=== PATIENT | male | born 1945 | race Caucasian/White ===

== ENCOUNTER 2019-02-23 11:37 | Observation (INO) ==
--- NOTE | 2019-02-23 11:44 | Emergency Department Note ---
Disposition Clinical Impression: Unstable angina pectoris Chest pain Qualifiers: Chest pain type: unspecified Qualified Code(s): R07.9 - Chest pain, unspecified Disposition: Admitted As Inpatient Condition: Fair Time of Disposition: 15:22 General Adult HPI - General Stated complaint: Chest Pain Time Seen by Provider: 02/23/19 11:39 - Related Data Home Medications Medication Instructions Recorded Confirmed Aspirin 81 mg PO 02/23/19 Fenofibrate Nanocrystallized 145 mg PO 02/23/19 [Fenofibrate] Finasteride [Propecia] 0.5 mg PO 02/23/19 Gabapentin [Neurontin] 600 mg PO Q3H 02/23/19 02/23/19 Lisinopril [Zestril] 20 mg PO BID 02/23/19 02/23/19 OxyCODONE/APAP 5/325 [Percocet 1 each PO Q4HR PRN 02/23/19 02/23/19 5/325 MG] Tamsulosin [Flomax] 0.4 mg PO DAILY 02/23/19 02/23/19 cloNIDine HCl [CloNIDine HCl] 0.1 mg PO TID 02/23/19 02/23/19 Allergies Allergy/AdvReac Type Severity Reaction Status Date / Time No Known Allergies Allergy Verified 02/23/19 11:58 Course Vital Signs Temperature 97.6 F 02/23/19 11:50 Pulse Rate 56 02/23/19 11:50 Respiratory Rate 16 02/23/19 11:50 Blood Pressure 147/77 02/23/19 11:50 O2 Sat by Pulse Oximetry 100 02/23/19 11:50 Temperature 97.6 F 02/23/19 14:57 Pulse Rate 55 02/23/19 14:57 Respiratory Rate 15 02/23/19 14:57 Blood Pressure 152/85 02/23/19 14:57 O2 Sat by Pulse Oximetry 98 02/23/19 14:57 Oxygen Delivery Oxygen Delivery Room Air Medical Decision Making - Lab Data Result diagrams: 02/23/19 12:31 02/23/19 13:55 Lab Results 02/23/19 02/23/19 02/23/19 Range/Units 12:31 12:31 12:31 WBC 9.0 (4.3-11.1) K/mcL RBC 5.36 (4.19-5.50) M/mcL Hgb 16.0 D (12.9-16.9) g/dL Hct 49.1 (37.5-50.1) % MCV 91.6 (83.0-100.0) fL MCH 29.9 (28.0-33.3) pg MCHC 32.6 (31.6-35.5) g/dL RDW 13.1 (11.5-14.5) % Plt Count 244 (140-400) K/mcL MPV 10.2 (9.4-12.4) fL Immature Gran % 0.7 (0-4) % Seg Neutrophils % 73.1 % Lymphocytes % 16.1 % Monocytes % 7.7 % Eosinophils % 1.3 % Basophils % 1.1 % Neutrophils # 6.6 (1.6-8.9) K/mcL Lymphocytes # 1.5 (0.6-4.6) K/mcL Monocytes # 0.7 (0.0-1.3) K/mcL Eosinophils # 0.1 (0.0-0.6) K/mcL Basophils # 0.1 (0.0-0.2) K/mcL Sodium Cancelled Potassium Cancelled Chloride Cancelled Carbon Dioxide Cancelled BUN Cancelled Creatinine Cancelled Est GFR ( Amer) Cancelled Est GFR (Non-Af Amer) Cancelled BUN/Creatinine Ratio Cancelled Glucose Cancelled Calculated Osmolality Cancelled Calcium Cancelled Total Bilirubin Cancelled AST Cancelled ALT Cancelled Alkaline Phosphatase Cancelled Troponin I < 0.03 (< 0.04) ng/mL B-Natriuretic Peptide 21 (Less than 100) pg/mL Serum Total Protein Cancelled Albumin Cancelled Globulin Cancelled Albumin/Globulin Ratio Cancelled Specimen Rejected 02/23/19 02/23/19 Range/Units 12:31 13:55 WBC (4.3-11.1) K/mcL RBC (4.19-5.50) M/mcL Hgb (12.9-16.9) g/dL Hct (37.5-50.1) % MCV (83.0-100.0) fL MCH (28.0-33.3) pg MCHC (31.6-35.5) g/dL RDW (11.5-14.5) % Plt Count (140-400) K/mcL MPV (9.4-12.4) fL Immature Gran % (0-4) % Seg Neutrophils % % Lymphocytes % % Monocytes % % Eosinophils % % Basophils % % Neutrophils # (1.6-8.9) K/mcL Lymphocytes # (0.6-4.6) K/mcL Monocytes # (0.0-1.3) K/mcL Eosinophils # (0.0-0.6) K/mcL Basophils # (0.0-0.2) K/mcL Sodium 134 L Potassium 5.2 H Chloride 101 Carbon Dioxide 27 BUN 34 H Creatinine 1.19 Est GFR ( Amer) > 60 Est GFR (Non-Af Amer) 60 BUN/Creatinine Ratio 29 H Glucose 107 H Calculated Osmolality 286 Calcium 10.3 Total Bilirubin 0.5 AST 21 ALT 15 Alkaline Phosphatase 40 Troponin I (< 0.04) ng/mL B-Natriuretic Peptide (Less than 100) pg/mL Serum Total Protein 7.1 Albumin 4.5 Globulin 2.6 Albumin/Globulin Ratio 1.7 Specimen Rejected Hemolyzed Attestation Statement - Attestation Attestation: I reviewed the residents documentation and agree with the residents assessment and plan of care. I have personally had face to face time with the patient. (Brief History, Brief Exam, and MDM) I personally supervised and was present for the olivas/critical portions of the following procedures completed by the resident: (add procedures performed here). [id number] time provided I attest to supervising the resident physician interpretation of ECG, chest x- ray Patient arrives complaining of chest discomfort. Pain radiates to his left arm. He states he had a cardiac catheterization several years ago without stent deployment. No other known history of cardiac issues. He appears in no acute distress on exam. He was given an aspirin by mouth prior to referral here from his physical therapy nurse's office 12:00: ECG sent to cardiology manager media relations for review (Dr. Hill) at 12:00
[2019-02-23] MEDS ORDERED: Nitroglycerin 0.4 MG TAB.SUBL SL PRN (11:45)
--- NOTE | 2019-02-23 11:48 | Emergency Department Note ---
Disposition Clinical Impression: Unstable angina pectoris Chest pain Qualifiers: Chest pain type: unspecified Qualified Code(s): R07.9 - Chest pain, unspecified Disposition: Admitted As Inpatient Condition: Fair Forms: ED Satisfaction Letter Time of Disposition: 13:36 Chest Pain HPI - General Chief Complaint: ED Chest Pain Stated Complaint: Chest Pain Time Seen by Provider: 02/23/19 11:39 Source: patient Mode of arrival: wheelchair Limitations: no limitations Vital Signs Reviewed: Yes Nursing Notes Reviewed: Yes - History of Present Illness HPI Narrative: Patient presented here for chest pain came from the nephrology office as he is currently getting worked up for polycythemia. Patient states the chest pain began yesterday was coming going and now today it is now constant department describing it as a pressure in his chest 6 out of 10 nonradiating. Today though started due to radiated down the left arm worse now become tingly. He has never had a heart stent placed but has had heart catheterization done partially 5 years ago at [facility]. He said it does not change with exertion he is mildly short of breath since yesterday since the chest pain began. Also has noticed slight weakness or last week his headache feels more tired than normal. There is no nausea no vomiting no change with exertion. Otherwise patient has no other complaints. - Related Data Allergies Allergy/AdvReac Type Severity Reaction Status Date / Time No Known Allergies Allergy Verified 02/23/19 11:58 All systems ED: reviewed and negative except as stated. Review of Systems: As Per HPI Physical Exam - General Limitations: no limitations General appearance: alert, in no apparent distress - Head Head exam: atraumatic, normocephalic, normal inspection - Eye Eye exam: Present: normal appearance, PERRL, EOMI - Neck Neck exam: Present: normal inspection, full ROM, trachea midline - Chest Chest inspection: Present: normal inspection. Absent: symmetric chest wall rise, tenderness - Respiratory Respiratory exam: Present: normal lung sounds bilaterally. Absent: respiratory distress, wheezes, accessory muscle use - Cardiovascular Cardiovascular exam: Present: regular rate, normal rhythm, normal heart sounds - Abdominal Exam Abdominal exam: Present: soft, Non-Tender, normal bowel sounds. Absent: tenderness, distention, guarding, rebound, rigidity - Extremities Exam Extremities exam: Present: normal inspection, full ROM. Absent: tenderness, pedal edema - Back Exam Back exam: Present: normal inspection, full ROM. Absent: tenderness, CVA tenderness (R), CVA tenderness (L) - Neurological Exam Neurological exam: Present: alert, oriented X3 - Skin Skin exam: Present: warm, dry, intact, normal color Course Course Narrative: We will get normal chest pain workup including CBC BMP troponin ENP as well as EKG and chest x-ray. We will give patient nitroglycerin over the chest pain. He received aspirin at the nephrology clinic prior to arrival. - Consultations Consultation #1: Spoke with on-call billing assistant Dr. Foster who came down to see the patient as well as look at the EKG and he agrees this is not a STEMI at this time. He recommended admission as well as a nuclear (non-exercise) stress test to be done and they will consult with the patient. No further treatment recommendations at this time from them Time: 12:52 Vital Signs Temperature 97.6 F 02/23/19 11:50 Pulse Rate 56 02/23/19 11:50 Respiratory Rate 16 02/23/19 11:50 Blood Pressure 147/77 02/23/19 11:50 O2 Sat by Pulse Oximetry 100 02/23/19 11:50 Temperature 97.6 F 02/23/19 11:50 Pulse Rate 56 02/23/19 11:50 Respiratory Rate 16 02/23/19 11:50 Blood Pressure 147/77 02/23/19 11:50 O2 Sat by Pulse Oximetry 100 02/23/19 11:50 Oxygen Delivery Oxygen Delivery Room Air Chest Pain - [facility] Narrative Medical decision making narrative: 73-year-old male presents to the emergency department complaining of chest pain. EKG was reviewed by cardiology they agreed with no STEMI being called. The did recommend nuclear stress test to be done and for patient to be admitted. Consultation was placed. Troponin came back negative. All other labs are within normal limits. I spoke with the hospitalist Dr. Crowe who agreed to ac cept the patient to their service. Patient admitted in stable condition. Aspirin was given at nephrology prior to coming here. We did give him nitroglycerin which did help with his chest pain. Chest X-Ray 02/23/19 11:42 IMPRESSION: No acute cardiopulmonary disease. D/ / 02/23/2019 12:26:48 Mita Wiggins MD / christine Interpreting Provider: Mita Wiggins MD - Medical Records Medical records reviewed: Yes I reviewed the patient's medical records. - Lab Data Lab results reviewed: Yes I reviewed the patient's lab results. Result diagrams: 02/23/19 12:31 02/23/19 12:31 Lab Results 02/23/19 02/23/19 02/23/19 Range/Units 12:31 12:31 12:31 WBC 9.0 (4.3-11.1) K/mcL RBC 5.36 (4.19-5.50) M/mcL Hgb 16.0 D (12.9-16.9) g/dL Hct 49.1 (37.5-50.1) % MCV 91.6 (83.0-100.0) fL MCH 29.9 (28.0-33.3) pg MCHC 32.6 (31.6-35.5) g/dL RDW 13.1 (11.5-14.5) % Plt Count 244 (140-400) K/mcL MPV 10.2 (9.4-12.4) fL Immature Gran % 0.7 (0-4) % Seg Neutrophils % 73.1 % Lymphocytes % 16.1 % Monocytes % 7.7 % Eosinophils % 1.3 % Basophils % 1.1 % Neutrophils # 6.6 (1.6-8.9) K/mcL Lymphocytes # 1.5 (0.6-4.6) K/mcL Monocytes # 0.7 (0.0-1.3) K/mcL Eosinophils # 0.1 (0.0-0.6) K/mcL Basophils # 0.1 (0.0-0.2) K/mcL Sodium Cancelled Potassium Cancelled Chloride Cancelled Carbon Dioxide Cancelled BUN Cancelled Creatinine Cancelled Est GFR ( Amer) Cancelled Est GFR (Non-Af Amer) Cancelled BUN/Creatinine Ratio Cancelled Glucose Cancelled Calculated Osmolality Cancelled Calcium Cancelled Total Bilirubin Cancelled AST Cancelled ALT Cancelled Alkaline Phosphatase Cancelled Troponin I < 0.03 (< 0.04) ng/mL B-Natriuretic Peptide 21 (Less than 100) pg/mL Serum Total Protein Cancelled Albumin Cancelled Globulin Cancelled Albumin/Globulin Ratio Cancelled Specimen Rejected 02/23/19 Range/Units 12:31 WBC (4.3-11.1) K/mcL RBC (4.19-5.50) M/mcL Hgb (12.9-16.9) g/dL Hct (37.5-50.1) % MCV (83.0-100.0) fL MCH (28.0-33.3) pg MCHC (31.6-35.5) g/dL RDW (11.5-14.5) % Plt Count (140-400) K/mcL MPV (9.4-12.4) fL Immature Gran % (0-4) % Seg Neutrophils % % Lymphocytes % % Monocytes % % Eosinophils % % Basophils % % Neutrophils # (1.6-8.9) K/mcL Lymphocytes # (0.6-4.6) K/mcL Monocytes # (0.0-1.3) K/mcL Eosinophils # (0.0-0.6) K/mcL Basophils # (0.0-0.2) K/mcL Sodium Potassium Chloride Carbon Dioxide BUN Creatinine Est GFR ( Amer) Est GFR (Non-Af Amer) BUN/Creatinine Ratio Glucose Calculated Osmolality Calcium Total Bilirubin AST ALT Alkaline Phosphatase Troponin I (< 0.04) ng/mL B-Natriuretic Peptide (Less than 100) pg/mL Serum Total Protein Albumin Globulin Albumin/Globulin Ratio Specimen Rejected Hemolyzed - Radiology Data Radiology results reviewed: Yes I reviewed the patient's radiology results. - EKG Data EKG attestation: Yes I reviewed and interpreted this EKG. EKG results narrative: EKG done at 1148 review myself and the attending shows sinus rhythm at a rate of 54, RI 157, QRS 96, QTC 341. There is ST elevation in lead V2 and V3 V2 only has 2 mm in V3 has a half a millimeter this does not meet STEMI criteria there is no other T-wave abnormalities. There is no other signs of ischemia. There is no hypertrophy, heart strain, heart block. No WPW/Brugada/HOCM. There is no old EKG to compare with Heart Score - Score History: Moderately Suspicious EKG: Non Specific repolarisation Disturbance Age: Greater than 65 Risk Factors: 1-2 risk factors Troponin: Less than normal limit HEART Score Total: 5
[2019-02-23 12:46] LABS: Basophils # 0.1 K/mcL (0.0-0.2); Basophils % 1.1 %; Eosinophils # 0.1 K/mcL (0.0-0.6); Eosinophils % 1.3 %; Hematocrit 49.1 % (37.5-50.1); Immature Granulocytes % 0.7 % (0-4); Lymphocytes # 1.5 K/mcL (0.6-4.6); Lymphocytes % 16.1 %; Mean Corpuscular HGB Conc 32.6 g/dL (31.6-35.5); Mean Corpuscular Hemoglobin 29.9 pg (28.0-33.3); Mean Corpuscular Volume 91.6 fL (83.0-100.0); Mean Platelet Volume 10.2 fL (9.4-12.4); Monocytes # 0.7 K/mcL (0.0-1.3); Monocytes % 7.7 %; Neutrophils # 6.6 K/mcL (1.6-8.9); Platelet Count 244 K/mcL (140-400); Red Blood Count 5.36 M/mcL (4.19-5.50); Red Cell Distribution Width 13.1 % (11.5-14.5); Segmented Neutrophils % 73.1 %
[2019-02-23 14:34] LABS: Alanine Aminotransferase 15 Units/L (7-52); Albumin 4.5 g/dL (3.5-5.7); Albumin/Globulin Ratio 1.7 (1.1-2.2); Alkaline Phosphatase 40 Units/L (34-104); Aspartate Amino Transferase 21 Units/L (13-39); BUN/Creatinine Ratio 29 (6-26); Bilirubin,Total 0.5 mg/dL (0.3-1.0); Blood Urea Nitrogen 34 mg/dL (8-23); Calcium 10.3 mg/dL (8.6-10.3); Carbon Dioxide 27 mEq/L (23-29); Chloride 101 mEq/L (98-107); Globulin 2.6 g/dL (2.4-3.5); Glucose 107 mg/dL (70-105); Osmolality,Calculated 286 (280-300); Potassium 5.2 mEq/L (3.5-5.1); Sodium 134 mEq/L (136-145); Total Protein 7.1 g/dL (6.4-8.9); eGFR For African Americans > 60 (> 60); eGFR For Non-African Americans 60 (> 60)
[2019-02-23] MEDS ORDERED: Naloxone 0.4 MG/ML INJ IVP PRN (16:24)
[2019-02-23] MEDS ORDERED: Acetaminophen 325 MG TABLET PO PRN (16:24)
[2019-02-23] MEDS ORDERED: Ondansetron ODT 4 MG TAB.RAPDIS SL PRN (16:24)
--- NOTE | 2019-02-23 16:51 | Internal Med History&Physical ---
Date of Encounter: 02/23/19 Time of Encounter: 16:51 Internal Medicine - H&P: HPI Chief complaint: cp Admitted From: Emergency Dept Plans for Post Hospital Care: Home History of present illness: Mr. Coles is a 73 year old male medical history of diabetes type 2 hyperlipidemia hypertension PVD left CEA chronic back pain-it began to experience off and on chest pain starting yesterday that occurred at rest with no aggravating or relieving factors. Today pain has been more constant is describing as a pressure at times sharp radiating to his left arm which she states feels like a "toothache". Patient has been feeling mild breath on exertion as well as increasingly weak. Denies any nausea vomiting or lightheadedness some slight diaphoresis. He was at his nephrology appointment when symptoms began to worsen he was advised to go to the ER for evaluation. Laboratory was obtained troponin was negative chest x-ray with nothing acute. EKG was obtained which did show some ST elevations in V3 4-5 and 2 evaluated by cardiology in the ER does not appear to be STEMI he will be admitted and undergo nuclear stress test in the a.m. evaluated by cardiology after testing. Currently patient does experience some intermittent sharp left-sided chest pain however he is declining nitroglycerin at this time he does not want to get a headache. Vital signs are stable discuss treatment plan with the patient verbalized understanding Past Med Surg Social Fam HX - Past Medical History Medical history: diabetes, hypertension, renal disease Psychiatric history: no psych history - Past Surgical History Surgical History: appendectomy, herniorrhaphy Additional surgical history: Back [id number] - Social History Smoking Status: Former smoker Smokeless Tobacco Status: No Alcohol use: none Drug use: none - Family History Mother Living Status: Cause of : cva Hx Family Cardiac Disorders: Yes Father History Unknown: Yes Internal Medicine - H&P: Meds Aspirin 81 mg PO 02/23/19 [History] Fenofibrate Nanocrystallized [Fenofibrate] 145 mg PO 02/23/19 [History] Finasteride [Propecia] 0.5 mg PO 02/23/19 [History] Gabapentin [Neurontin] 600 mg PO Q4H 02/23/19 [History] Lisinopril [Zestril] 20 mg PO BID 02/23/19 [History] OxyCODONE/APAP 5/325 [Percocet 5/325 MG] 1 each PO Q4HR PRN 02/23/19 [History] Tamsulosin [Flomax] 0.4 mg PO DAILY 02/23/19 [History] cloNIDine HCl [CloNIDine HCl] 0.1 mg PO TID 02/23/19 [History] Allergy/AdvReac Type Severity Reaction Status Date / Time No Known Allergies Allergy Verified 02/23/19 11:58 All Systems PM: A 10-system review of systems was performed and is negative for pertinent findings except as documented above in the HPI. - Constitutional Constitutional: no chills, no fever(s), no night sweats - EENT Eyes: no change in vision, no discharge, no pain, no photophobia Nose, mouth and throat: no dysphagia, no nasal discharge, no neck pain, no sore throat - Cardiovascular Cardiovascular ROS IM: no chest pain, no diaphoresis, no dyspnea, no lightheadedness, no palpitations, no syncope - Respiratory Respiratory: no cough, no dyspnea, no wheezing, no excessive phlegm production - Gastrointestinal Gastrointestinal: no abdominal pain, no diarrhea, no hematemesis, no hematochezia, no melena, no nausea, no vomiting - Musculoskeletal Musculoskeletal ROS IM: no numbness, no tingling - Integumentary Integumentary IM: no rash, no unusual bruising - Neurological Neurological ROS: no confusion, no convulsions, no focal weakness, no numbness, no tingling, no tremor(s) - Hematologic/Lymphatic Hematologic/Lymphatic: no easy bruising - Constitutional Vitals: Temp Pulse Resp BP Pulse Ox 97.6 F 55 15 152/85 98 02/23/19 14:57 02/23/19 14:57 02/23/19 14:57 02/23/19 14:57 02/23/19 14:57 Exam: Skin: Free of rash and discoloration. Eyes: Sclera is white. There is no discharge from eyes. ENMT: Oral/pharyngeal mucosa is normal in appearance. There is no discharge from nose or ears. Respiratory: Normal breath sounds with no crackles and wheezes bilaterally. CV: Heart is regular with no gallop or murmur. GI: Abdomen is flat and soft with no palpable mass or visceromegaly. : There is no tenderness in patient's flanks bilaterally. Neuro exam: He has good strength in upper and lower extremities. He has normal eye movements. Psychiatric: He has normal affect. His thought process is appropriate to the situation. Internal Med - H&P Results - Labs CBC & Chem 7: 02/23/19 12:31 02/23/19 13:55 Labs: Short CBC 02/23/19 Range/Units 12:31 WBC 9.0 (4.3-11.1) K/mcL Hgb 16.0 D (12.9-16.9) g/dL Hct 49.1 (37.5-50.1) % Plt Count 244 (140-400) K/mcL Neutrophils # 6.6 (1.6-8.9) K/mcL BMP 02/23/19 02/23/19 12:31 13:55 Sodium Cancelled 134 L Potassium Cancelled 5.2 H Chloride Cancelled 101 Carbon Dioxide Cancelled 27 BUN Cancelled 34 H Creatinine Cancelled 1.19 Glucose Cancelled 107 H Calcium Cancelled 10.3 Cardiac Enzymes 02/23/19 Range/Units 12:31 Troponin I < 0.03 (< 0.04) ng/mL Liver Function 02/23/19 02/23/19 Range/Units 12:31 13:55 Total Bilirubin Cancelled 0.5 AST Cancelled 21 ALT Cancelled 15 Alkaline Phosphatase Cancelled 40 Albumin Cancelled 4.5 - Impressions ITS Impressions Chest X-Ray 02/23/19 11:42 IMPRESSION: No acute cardiopulmonary disease. D/ / 02/23/2019 12:26:48 Mita Wiggins MD / christine Interpreting Provider: Mita Wiggins MD - Assessment and Plan (1) Chest pain Current Visit: Yes Status: Acute Assessment and plan: 1 patient has been experiencing chest pain off and on for 2 days pain has worsened and become continuous with associated symptoms of weakness and shortness of breath pain radiates to left arm which he describes as a toothache. Initial troponin was negative Initial trend troponins Initial EKG did have some ST elevation V 3,4,5 and 2 evaluated by cardiology- not a STEMI Continuous cardiac monitoring Recheck EKG in the a.m. Lipid profile statin, continue aspirin Check TSH Obtain cardiac echo Nothing by mouth midnight for nuclear stress test in the a.m. Cardiology consult and appreciate recommendations Nitroglycerin as needed for chest pain Qualifiers: Chest pain type: unspecified Qualified Code(s): R07.9 - Chest pain, unspecified (2) HTN (hypertension) Current Visit: Yes Status: Acute Assessment and plan: Continue with home medications Qualifiers: Hypertension type: essential hypertension Qualified Code(s): I10 - Essential (primary) hypertension (3) Diabetes mellitus Current Visit: Yes Status: Acute Assessment and plan: Accu-Cheks before meals at bedtime with sliding scale insulin Qualifiers: Diabetes mellitus type: type 2 Diabetes mellitus fpc insulin use: without terminal operations supervisor use Diabetes mellitus complication status: with kidney complications Diabetes mellitus complication detail: with chronic kidney disease Chronic kidney disease stage: stage 3 (moderate) Qualified Code(s): E11.22 - Type 2 diabetes mellitus with diabetic chronic kidney disease; N18.3 - Chronic kidney disease, stage 3 (moderate) (4) CKD (chronic kidney disease) stage 3, GFR 30-59 ml/min Current Visit: Yes Status: Acute Assessment and plan: CKG stage III-appears baseline ranges from 1-1.5 currently at 1.19 we will continue to monitor closely Avoid nephrotoxins intake output daily weights (5) DVT prophylaxis Current Visit: Yes Status: Acute Assessment and plan: Heparin subcutaneous - Time Spent With Patient Total time spent is greater than 50% in coordination of care (as documented) at patient's floor/unit and/or counseling patient:
[2019-02-23] MEDS ORDERED: D5% in Water 1,000 ML IVC PRN (17:51)
[2019-02-23] MEDS ORDERED: Dextrose Gel 15 GM/37.5 ML TUBE PO PRN ×2 (17:51)
[2019-02-23] MEDS ORDERED: *HR* Dextrose 50 % in Water (Syg) 50 ML SYRINGE IVP PRN (17:51)
[2019-02-23] MEDS: Gabapentin 300 MG CAPSULE PO SCH ×3 (18:07→23:11)
[2019-02-23] MEDS: *HR* Heparin 5,000 UNIT/ML VIAL SQ SCH (18:08)
[2019-02-23] MEDS ORDERED: Perflutren Lipid Microsphere 1.3 ML in 0.9 % Sodium Chloride 8.7 ML IVP ONE (18:18)
--- NOTE | 2019-02-23 18:40 | Cardiology Consult Note ---
Date of Encounter: 02/23/19 Time of Encounter: 12:00 Assessment and Plan (1) Atypical chest pain Current Visit: Yes Status: Acute Patient with risk factors for coronary artery disease including diabetes and CKD as well as hypertension. Please trend troponin and obtain serial EKG Obtain echocardiogram. Obtain pharmacological stress test if troponin is negative 2. Start aspirin 81 mg daily, beta izabel, high intensity statin. 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 insulin use: without terminal make up operator use Diabetes mellitus complication status: with kidney complications Diabetes mellitus complication detail: with chronic kidney disease Chronic kidney disease stage: stage 3 (moderate) Qualified Code(s): E11.22 - Type 2 diabetes mellitus with diabetic chronic kidney disease; N18.3 - Chronic kidney disease, stage 3 (moderate) (4) HTN (hypertension) Current Visit: Yes Status: Acute Qualifiers: Hypertension type: essential hypertension Qualified Code(s): I10 - Essential (primary) hypertension Discussion w patient/family: The assessment and plan as outlined above was discussed with the patient and/or family members who expressed understanding and agreement. All questions were answered. Thank you for involving us in the care of your patient. Please call with any questions. History of Present Illness Consult date: 02/23/19 History of present illness: Mr. Coles is a 73 year old male Mr. Coles is a very pleasant 73 y/o gentleman with a history of diabetes, HTN, CKD stage III, who was sent in from nephrology office on account of not feeling well and chest pain. Patient describes substernal chest pressure at rest, nonradiating, associated with nausea and abdominal discomfort. He reports cardiac catheterization many years ago which was said to be negative for obstruction. He has no family history of premature coronary artery disease Past Med Surg Social Fam HX - Past Medical History Medical history: diabetes, hypertension, renal disease Psychiatric history: no psych history - Past Surgical History Surgical History: appendectomy, herniorrhaphy Additional surgical history: Back sxx4 - Social History Smoking Status: Former smoker Smokeless Tobacco Status: No Alcohol use: none Drug use: none - Family History Mother Living Status: Cause of : cva Hx Family Cardiac Disorders: Yes Father History Unknown: Yes Medications and Allergies Aspirin 81 mg PO 02/23/19 [History] Fenofibrate Nanocrystallized [Fenofibrate] 145 mg PO 02/23/19 [History] Finasteride [Propecia] 0.5 mg PO 02/23/19 [History] Gabapentin [Neurontin] 600 mg PO Q4H 02/23/19 [History] Lisinopril [Zestril] 20 mg PO BID 02/23/19 [History] OxyCODONE/APAP 5/325 [Percocet 5/325 MG] 1 each PO Q4HR PRN 02/23/19 [History] Tamsulosin [Flomax] 0.4 mg PO DAILY 02/23/19 [History] cloNIDine HCl [CloNIDine HCl] 0.1 mg PO TID 02/23/19 [History] Allergy/AdvReac Type Severity Reaction Status Date / Time No Known Allergies Allergy Verified 02/23/19 11:58 All Systems Review: The remainder of the systems were reviewed and are negative - Constitutional Constitutional: no anorexia, no fever(s), no malaise - EENT Eyes: no blurred vision - Cardiovascular Cardiovascular: as per HPI, dyspnea on exertion, no dyspnea at rest, no palpitations, no slow heart rate - Respiratory Respiratory: no cough - Gastrointestinal Gastrointestinal: abdominal pain - Genitourinary Genitourinary: no dysuria - Musculoskeletal Musculoskeletal: no myalgias - Neurological Neurological: no abnormal speech - Psychiatric Psychiatric: no panic attacks - Hematological/Lymphatic Hematologic/Lymphatic: no easy bleeding Physical Examination Vital Signs, Last 4 Hours Temp Pulse Resp BP Pulse Ox 02/23/19 14:57 97.6 F 55 15 152/85 98 General: Conversant HEENT: Atraumatic Neck: No JVD Cardiac: Reg Rate and Rhythm, Normal S1 and S2, No Murmur Lungs: Normal Breath Sounds, No Wheeze, Rales, Rhonchi Neuro: Alert and responsive Abdomen: Soft Extremities: Other (Trace pedal edema) Results 02/23/19 12:31 02/23/19 13:55 Lab Results 02/23/19 02/23/19 02/23/19 12:31 12:31 12:31 WBC 9.0 Hgb 16.0 D Hct 49.1 Plt Count 244 Sodium Cancelled Potassium Cancelled Chloride Cancelled Carbon Dioxide Cancelled BUN Cancelled Creatinine Cancelled Glucose Cancelled Calcium Cancelled Total Bilirubin Cancelled AST Cancelled ALT Cancelled Alkaline Phosphatase Cancelled Troponin I < 0.03 B-Natriuretic Peptide 21 02/23/19 13:55 WBC Hgb Hct Plt Count Sodium 134 L Potassium 5.2 H Chloride 101 Carbon Dioxide 27 BUN 34 H Creatinine 1.19 Glucose 107 H Calcium 10.3 Total Bilirubin 0.5 AST 21 ALT 15 Alkaline Phosphatase 40 Troponin I B-Natriuretic Peptide - EKG Interpretation EKG results cardiology: personally reviewed (Sinus rhythm, ST appears coved in V1 and somewhat saddle shaped in V2. No old EKG for comparison) Consult Discharge Plan - Plan Referrals: Richard Sweeney DO [Primary Care Provider] -
[2019-02-23] MEDS ORDERED: Insulin LISPRO 300 UNITS/3 ML VIAL SQ SCH (21:00)
[2019-02-23] MEDS: Lisinopril 20 MG TABLET PO SCH (21:01)
[2019-02-23] MEDS: cloNIDine HCl 0.1 MG TABLET PO SCH (21:01)
[2019-02-23] MEDS: *HR* OxyCODONE/APAP 5/325 TABLET PO PRN (21:01)
--- NOTE | 2019-02-23 22:37 | Electrocardiograph Report ---
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
[2019-02-24 01:50] LABS: Basophils # 0.1 K/mcL (0.0-0.2); Basophils % 1.3 %; Eosinophils # 0.2 K/mcL (0.0-0.6); Eosinophils % 1.8 %; Hematocrit 49.2 % (37.5-50.1); Hemoglobin 16.2 g/dL (12.9-16.9); Immature Granulocytes % 0.6 % (0-4); Lymphocytes # 1.7 K/mcL (0.6-4.6); Lymphocytes % 20.8 %; Mean Corpuscular HGB Conc 32.9 g/dL (31.6-35.5); Mean Corpuscular Hemoglobin 30.3 pg (28.0-33.3); Mean Corpuscular Volume 92.1 fL (83.0-100.0); Monocytes # 0.6 K/mcL (0.0-1.3); Monocytes % 6.7 %; Neutrophils # 5.6 K/mcL (1.6-8.9); Platelet Count 234 K/mcL (140-400); Red Blood Count 5.34 M/mcL (4.19-5.50); Red Cell Distribution Width 13.1 % (11.5-14.5); Segmented Neutrophils % 68.8 %; White Blood Count 8.2 K/mcL (4.3-11.1)
[2019-02-24 02:14] LABS: BUN/Creatinine Ratio 22 (6-26); Blood Urea Nitrogen 31 mg/dL (8-23); Calcium 10.2 mg/dL (8.6-10.3); Carbon Dioxide 25 mEq/L (23-29); Chloride 101 mEq/L (98-107); Chol/HDL Ratio 5.5 (0-4.9); Cholesterol 159 mg/dL (< 200); Glucose 117 mg/dL (70-105); HDL Cholesterol 29 mg/dL (40-59); LDL Cholesterol,Calculated 73 mg/dL (0-99); Magnesium 1.7 mg/dL (1.6-2.6); Osmolality,Calculated 290 (280-300); Potassium 4.3 mEq/L (3.5-5.1); Sodium 136 mEq/L (136-145); Triglycerides 287 mg/dL (< 150); Troponin I < 0.03 ng/mL (< 0.04); eGFR For African Americans 59 (> 60); eGFR For Non-African Americans 49 (> 60)
[2019-02-24 02:27] LABS: Thyroid Stimulating Hormone 0.867 mcIU/mL (0.340-5.600)
[2019-02-24] MEDS: *HR* Heparin 5,000 UNIT/ML VIAL SQ SCH (04:54)
[2019-02-24] MEDS: Gabapentin 300 MG CAPSULE PO SCH ×4 (04:54→15:41)
[2019-02-24] MEDS ORDERED: Regadenoson 0.4 MG/5 ML SYRINGE IVP ONE (06:10)
[2019-02-24] MEDS: Insulin LISPRO 300 UNITS/3 ML VIAL SQ SCH ×2 (07:43→11:57)
--- NOTE | 2019-02-24 08:28 | Cardiology Progress Note ---
Date of Encounter: 02/24/19 Time of Encounter: 08:00 Assessment and Plan (1) Atypical chest pain Current Visit: Yes Status: Acute Patient presented with atypical chest pain. Troponin negative x3. No ischemic ECG changes. No chest pain overnight. Nonexercise nuclear stress test completed this AM, results pending. TTE pending. Continue asa, statin, ACEi. Has not been on BB d/t baseline bradycardia. If stress negative and no significant findings on TTE, will sign-off. Further recommendations to follow. (2) HTN (hypertension) Current Visit: Yes Status: Acute Controlled this morning. Continue to monitor as inpt, defer medication titration to primary service. Qualifiers: Hypertension type: essential hypertension Qualified Code(s): I10 - Essential (primary) hypertension (3) CKD (chronic kidney disease) stage 3, GFR 30-59 ml/min Current Visit: Yes Status: Acute Mild bump in SCr this AM. Continue to monitor. Discussion w patient/family: The assessment and plan as outlined above was discussed with the patient and/or family members who expressed understanding and agreement. All questions were answered. Thank you for involving us in the care of your patient. Please call with any questions. THe patient will be discussed and reviewed with Dr. Hill; changes to be made accordingly. Subjective Principal diagnosis: Chest pain Interval history: Seen and examined in stress lab. No chest pain overnight. Reports continues to have unchanged dyspnea. Objective General: Conversant, No Apparent Distress HEENT: Atraumatic, Normocephaly, Mucus Membranes Moist Neck: No JVD, Normal carotid pulses Cardiac: Reg Rate and Rhythm, Normal S1 and S2, No Murmur Lungs: Normal Breath Sounds, No Wheeze, Rales, Rhonchi Neuro: Alert and responsive, No focal deficits noted Abdomen: Soft, Non-Tender Skin: No rashes noted on visualized skin Musculoskeletal: No Chest Wall Tenderness Extremities: No Clubbing, No Cyanosis, No Edema, Normal Pulses Results 02/24/19 00:44 02/24/19 00:44 Lab Results 02/23/19 02/23/19 02/23/19 12:31 12:31 12:31 WBC 9.0 Hgb 16.0 D Hct 49.1 Plt Count 244 Sodium Cancelled Potassium Cancelled Chloride Cancelled Carbon Dioxide Cancelled BUN Cancelled Creatinine Cancelled Glucose Cancelled Calcium Cancelled Magnesium Total Bilirubin Cancelled AST Cancelled ALT Cancelled Alkaline Phosphatase Cancelled Troponin I < 0.03 B-Natriuretic Peptide 21 TSH 02/23/19 02/23/19 02/24/19 13:55 18:54 00:44 WBC 8.2 Hgb 16.2 Hct 49.2 Plt Count 234 Sodium 134 L Potassium 5.2 H Chloride 101 Carbon Dioxide 27 BUN 34 H Creatinine 1.19 Glucose 107 H Calcium 10.3 Magnesium Total Bilirubin 0.5 AST 21 ALT 15 Alkaline Phosphatase 40 Troponin I 0.03 B-Natriuretic Peptide TSH 02/24/19 00:44 WBC Hgb Hct Plt Count Sodium 136 Potassium 4.3 Chloride 101 Carbon Dioxide 25 BUN 31 H Creatinine 1.42 H Glucose 117 H Calcium 10.2 Magnesium 1.7 Total Bilirubin AST ALT Alkaline Phosphatase Troponin I < 0.03 B-Natriuretic Peptide TSH 0.867 Active Medications Acetaminophen (Tylenol) 650 mg PO Q6HR PRN PRN Reason: Mild Pain/Fever Stop: 08/25/19 16:25 Last Admin: 02/23/19 19:03 Dose: 650 mg Documented by: Aspirin (Aspirin) 81 mg PO DAILY [facility] Stop: 08/26/19 09:01 Clonidine HCl (Clonidine Hcl) 0.1 mg PO TID [facility] Stop: 08/25/19 21:01 Last Admin: 02/23/19 21:01 Dose: 0.1 mg Documented by: Dextrose/Water (Dextrose 50% (Syg)) 25 ml IVP AD PRN PRN Reason: Hypoglycemia Stop: 08/25/19 17:52 Fenofibrate (Tricor) 162 mg PO DAILY [facility] Stop: 08/26/19 09:01 Gabapentin (Neurontin) 600 mg PO Q4HR [facility] Stop: 08/25/19 18:01 Last Admin: 02/24/19 04:54 Dose: 600 mg Documented by: Glucagon (Glucagen) 1 mg IM ONCE PRN PRN Reason: Hypoglycemia Stop: 08/25/19 17:52 Glucose (Gluctose) 15 gm PO ONCE PRN PRN Reason: Hypoglycemia Stop: 08/25/19 17:52 Glucose (Gluctose) 30 gm PO ONCE PRN PRN Reason: Hypoglycemia Stop: 08/25/19 17:52 Heparin Sodium (Porcine) (Heparin) 5,000 unit SQ Q12HCO [place] Stop: 08/25/19 18:01 Last Admin: 02/24/19 04:54 Dose: 5,000 unit Documented by: Dextrose (Dextrose 5%) 1,000 mls @ 100 mls/hr IVC .Q10H PRN PRN Reason: HYPOGLYCEMIA Stop: 08/25/19 17:52 Insulin Human Lispro (Humalog) 0 units SQ HS [facility]; Protocol Stop: 08/25/19 21:01 Last Admin: 02/23/19 21:03 Dose: Not Given Documented by: Insulin Human Lispro (Humalog) 0 units SQ TIDAC [facility]; Protocol Stop: 08/26/19 07:31 Last Admin: 02/24/19 07:43 Dose: Not Given Documented by: Lisinopril (Zestril) 20 mg PO BID [facility]; Protocol Stop: 08/25/19 21:01 Last Admin: 02/23/19 21:01 Dose: 20 mg Documented by: Naloxone HCl (Narcan) 0.4 mg IVP Q2MPRN PRN PRN Reason: SEE COMMENTS Stop: 08/25/19 16:25 Nitroglycerin (Nitroglycerin) 0.4 mg SL Q5MIN PRN PRN Reason: Chest Pain Stop: 08/25/19 11:46 Ondansetron HCl (Zofran Odt) 4 mg SL Q8HR PRN PRN Reason: Nausea And Vomiting Stop: 08/25/19 16:25 Oxycodone/Acetaminophen (Percocet 5/325) 1 each PO Q4HR PRN PRN Reason: Pain Stop: 08/25/19 16:23 Last Admin: 02/23/19 21:01 Dose: 1 each Documented by: Tamsulosin HCl (Flomax) 0.4 mg PO DAILY [facility]; Protocol Stop: 08/26/19 09:01 - Imaging and Cardiology Stress Test: pending Other Results: 12 hour tele: avg HR=59 SR/SB. No events - EKG Interpretation EKG results cardiology: personally reviewed Consult Discharge Plan - Plan Referrals: Richard Sweeney DO [Primary Care Provider] -
[2019-02-24] MEDS ORDERED: Aspirin 81 MG TAB.CHEW PO SCH (09:00)
[2019-02-24] MEDS ORDERED: Fenofibrate 54 MG TABLET PO SCH (09:00)
[2019-02-24] MEDS: cloNIDine HCl 0.1 MG TABLET PO SCH ×2 (09:28→15:41)
[2019-02-24] MEDS: Lisinopril 20 MG TABLET PO SCH (09:28)
[2019-02-24] MEDS: *HR* OxyCODONE/APAP 5/325 TABLET PO PRN (09:28)
[2019-02-24 10:02] LABS: Estimated Average Glucose 128 mg/dl; Hemoglobin A1C 6.1 %
[2019-02-24 15:44] VITALS: BP 159/82
--- NOTE | 2019-02-24 16:35 | Discharge Summary ---
- NOTES TO OUTPATIENT PROVIDER Notes to Outpatient Provider: Impression presented with chest pain cardiac workup was completed including a stress test which was negative for any ischemia or infarct. Cardiac echo with EF of 55-60% patient was evaluated by cardiology- with no further testing recommended. Patient expressed concern about weight loss, night sweats and weakness. Lab work has been completed and negative he was evaluated by PT with no needs identified. Advised patient follow-up with GI as outpatient for possible EGD and further workup Orders not resulted at time of discharge: Pending orders 02/23/19 16:54 NM kalpesh perf SPECT multi [NM] Routine 02/24/19 06:00 ECG 12 lead ECG [ECG] AM 0600 02/24/19 13:58 Vitamin B1 (Thiamine) Whole Bl Routine Date of Encounter: 02/24/19 Time of Encounter: 16:30 - Discharge Diagnosis (1) Chest pain Priority: Primary Status: Acute Qualifiers: Chest pain type: unspecified Qualified Code(s): R07.9 - Chest pain, unspecified (2) HTN (hypertension) Priority: Secondary Status: Acute Qualifiers: Hypertension type: essential hypertension Qualified Code(s): I10 - Essential (primary) hypertension (3) Diabetes mellitus Priority: Secondary Status: Acute Qualifiers: Diabetes mellitus type: type 2 Diabetes mellitus fdc insulin use: without fdc use Diabetes mellitus complication status: with kidney complications Diabetes mellitus complication detail: with chronic kidney disease Chronic kidney disease stage: stage 3 (moderate) Qualified Code(s): E11.22 - Type 2 diabetes mellitus with diabetic chronic kidney disease; N18.3 - Chronic kidney disease, stage 3 (moderate) (4) CKD (chronic kidney disease) stage 3, GFR 30-59 ml/min Priority: Secondary Status: Acute Hospital course: Mr. Coles is a 73 year old male past medical history of diabetes hypertension CK D stage III who presented from his nephrology office after expressing that he did not feel well and was experiencing chest pain. Describing chest pain substernal radiating to his right arm describing as a toothache with associated nausea and abdominal discomfort. He was advised to go to the emergency department in the ER initial EKG did show some ST elevations which were reviewed by cardiology and ruled out STEMI troponins were negative she underwent cardiac stress test which was negative for any ischemia or infarct. EF is greater than 70% cardiac echo did demonstrate preserved EF of 55-60% with moderate cLVH normal wall motion. Cardiology recommending no more workup at this time and follow-up with primary care provider as outpatient. Patient did complain of weakness diaphoresis and 12 pound weight loss in the past 2 months. Lab work was completed it appears to be within normal limits he was evaluated by PT and OT with no recommendations. Advised patient to follow-up with primary care provider as well as obtained EGD to rule out any GI sources of chest pain as well as weight loss. Patient is unable to take statin and/or beta izabel continue aspirin ISACC -currently hemodynamically stable and ready for discharge this time. - Time Spent with Patient Total time spent providing and/or coordinating discharge services: - Discharge Medications Prescriptions: No Action OxyCODONE/APAP 5/325 [Percocet 5/325 MG] 1 each PO Q4HR PRN PRN Reason: Pain Gabapentin [Neurontin] 600 mg PO Q4H Tamsulosin [Flomax] 0.4 mg PO DAILY Lisinopril [Zestril] 20 mg PO BID cloNIDine HCl [CloNIDine HCl] 0.1 mg PO TID Fenofibrate Nanocrystallized [Fenofibrate] 145 mg PO DAILY Aspirin 81 mg PO DAILY Finasteride [Proscar] 5 mg PO DAILY Testosterone Cypionate [Depo-Testosterone] 200 mg IM AD Home Medications: Aspirin 81 mg PO DAILY 02/23/19 [History] Fenofibrate Nanocrystallized [Fenofibrate] 145 mg PO DAILY 02/23/19 [History] Finasteride [Proscar] 5 mg PO DAILY 02/23/19 [History] Gabapentin [Neurontin] 600 mg PO Q4H 02/23/19 [History] Lisinopril [Zestril] 20 mg PO BID 02/23/19 [History] OxyCODONE/APAP 5/325 [Percocet 5/325 MG] 1 each PO Q4HR PRN 02/23/19 [History] Tamsulosin [Flomax] 0.4 mg PO DAILY 02/23/19 [History] Testosterone Cypionate [Depo-Testosterone] 200 mg IM AD 02/23/19 [History] cloNIDine HCl [CloNIDine HCl] 0.1 mg PO TID 02/23/19 [History] Allergies/Adverse Reactions: Allergy/AdvReac Type Severity Reaction Status Date / Time No Known Allergies Allergy Verified 02/23/19 11:58 Date of admission: 02/23/19 14:33 Primary care physician: Richard Sweeney DO Consults: 02/23/19 14:17 Consult to Cardiology [CONS] Stat Comment: Consulting Provider: Emeka Maciel Reason for Consult: chest pain, dr. duvall saw Time Notified: 14:18 Call Completed: Yes 02/24/19 12:37 Consult to Occupational Therapy [CONS] Stat Comment: Evaluate, develop and implement POC Reason for Consult: eval home needs Does patient have active BEDREST order?: No Is patient medically & hemodynamically stable?: Yes Patient assessed for mobility or mobilized this visit?: No Consult to Physical Therapy [CONS] Stat Comment: Evaluate, develop and implement POC Reason for Consult: eval home needs Does patient have active BEDREST order?: No Is patient medically & hemodynamically stable?: Yes Patient assessed for mobility or mobilized this visit?: No Discharging clinician: Lyn Hylton Anticipated date of discharge: 02/24/19 - Constitutional Vitals: Temp Pulse Resp BP Pulse Ox 98.1 F 76 16 159/82 97 02/24/19 15:42 02/24/19 15:42 02/24/19 15:42 02/24/19 15:42 02/24/19 15:42 Exam: Skin: Free of rash and discoloration. Eyes: Sclera is white. There is no discharge from eyes. ENMT: Oral/pharyngeal mucosa is normal in appearance. There is no discharge from nose or ears. Respiratory: Normal breath sounds with no crackles and wheezes bilaterally. CV: Heart is regular with no gallop or murmur. GI: Abdomen is flat and soft with no palpable mass or visceromegaly. : There is no tenderness in patient's flanks bilaterally. Neuro exam: He has good strength in upper and lower extremities. He has normal eye movements. Psychiatric: He has normal affect. His thought process is appropriate to the situation. - Patient Status Disposition: Home, Self-Care Condition: Fair Functional capacity at discharge: independent ambulation Overall status at discharge: patient is back to baseline - Discharge Instructions Instructions: Chest Pain (DC), Diabetes Mellitus Type 2 in Adults (DC), Chronic Hypertension (DC) Follow Up With: Richard Sweeney DO [Primary Care Provider] - (An appointment has been requested for you. They will call you and make an appointment. If you do not hear from them, please call and schedule an appointment. ) - Diet and Activity Activity: increase activity as tolerated Diet: advance to your usual diet
--- NOTE | 2019-02-26 20:37 | Electrocardiograph Report ---
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
== END 2019-02-24 17:22 | disposition home or self-care (01) ==
LOC: 3BNU 11:37 → EMEROOARM 11:37 → 3BNU 14:45
PROVIDERS: ADMIT Internal Medicine Nephrology; ATTEND Internal Medicine Nephrology